=== PATIENT | male | born 1950 | race Caucasian/White ===

== ENCOUNTER → 2025-01-25 10:49 | Outpatient (CLI) | payer OTHER, SELFPAY ==
--- NOTE | 2025-01-25 10:52 | DI.US.S_ITS ---
PROCEDURE: US ABDOMEN LIMITED INDICATIONS: Lump of skin TECHNIQUE: Real-time focused scanning was performed of the abdomen, with image documentation. COMPARISON: None. FINDINGS: In the area of palpable lump in the left lower abdominal wall, there is a 1.5 x 0.3 x 1.5 cm hypoechoic subcutaneous lesion with internal vascularity. IMPRESSION: Hypervascular hypoechoic subcutaneous mass in the area of interest in the left lower abdominal wall measuring 1.5 cm. Recommend further evaluation with contrast-enhanced MRI and/or tissue sampling. Dictated by: Ravinder Metcalf M.D. on 01/26/2025 at 20:11 Approved by: Ravinder Metcalf M.D. on 01/26/2025 at 20:16
== END ==
LOC: US 10:51
PROVIDERS: PCP Internal Medicine; Referring Provider Nurse Practitioner Family; Visit Provider Nurse Practitioner Family
DX: R19.04 Left lower quadrant abdominal swelling, mass and lump (principal)
CPT/HCPCS: 76705